=== PATIENT | male | born 1995 | race Caucasian/White ===

== ENCOUNTER 2016-09-20 01:34 | Emergency (ER) | payer OTHER ==
[~2016-09-20] VITALS: Ht 190.5 cm; Wt 89.7 kg
[2016-09-20 04:37] VITALS: BP 124/83
== END 2016-09-20 04:38 | disposition home or self-care (01) ==
LOC: EME 01:34
DX: R55 Syncope and collapse (principal); S09.90XA Unspecified injury of head, initial encounter; W18.30XA Fall on same level, unspecified, initial encounter; Y92.002 Bathroom of unspecified non-institutional (private) residence as the place of occurrence of the external cause
CPT/HCPCS: 70450; 93005; 99281; 99283